=== PATIENT | male | born 1980 | race Caucasian/White ===

== ENCOUNTER 2023-08-30 01:44 | Emergency (ER) | payer SELFPAY ==
[~2023-08-30] VITALS: Ht 177.8 cm; Wt 95.0 kg
[2023-08-30 01:48] VITALS: TEMP 97.9; O2SAT 98
[2023-08-30] MEDS ORDERED: IBUPROFEN 600MG TABLET PO ONE (03:30)
[2023-08-30] MEDS ORDERED: DEXAMETHASONE 1MG TABLET PO ONE (03:30)
[2023-08-30] MEDS ORDERED: DEXAMETHASONE 2MG TABLET PO NR (04:15)
[2023-08-30 04:22] VITALS: BP 114/81; PULSE 71; RESP 16
== END 2023-08-30 04:25 | disposition home or self-care (01) ==
LOC: ER 01:52
DX: J02.9 Acute pharyngitis, unspecified (principal)
CPT/HCPCS: 99284; 87430; 87070; J8540